=== PATIENT | female | born 1960 | race Hispanic/Latino ===

== ENCOUNTER 2018-02-20 14:08 | Emergency (ER) | payer MEDICAID ==
[2018-02-20] MEDS ORDERED: NACL 0.9% 1000 ML 1,000 ML ONE (15:43)
[2018-02-20] MEDS ORDERED: ASPIRIN PO ONE (15:51)
[2018-02-20] MEDS ORDERED: NACL 0.9% 1000 ML 1,000 ML IV ONE ×2 (15:53→16:07)
--- NOTE | 2018-02-20 16:13 | Emergency Department Report ---
HPI - General Chief Complaint: Fall Time Seen by Provider: 02/20/18 16:00 - HPI HPI: 57-year-old female presents to the emergency department by EMS from home after she appeared to have a syncopal episode on the bathroom. She says that she felt very dizzy and her ears started ringing and she thinks that she passed out. Upon waking up she has pain and deformity to the right ankle. She was placed in a makeshift splint by EMS but says she did not receive anything for discomfort. She has a history of rheumatoid arthritis, chronic back pains and gastroparesis. She denies any headache, neck pain, chest pain, shortness of breath. She denies any illicit drug use or alcohol use. ED Past Medical Hx - Past Medical History Hx Arthritis: Yes (RA) Additional medical history: gastroparesis - Surgical History Additional Surgical History: chronic back pain - Social History Smoking Status: Never Smoker - Medications Home Medications: Home Medications Medication Instructions Recorded Confirmed Last Taken Type Citalopram Hydrobromide 40 mg PO QDAY 02/20/18 02/20/18 Unknown History [Citalopram HBr] Gabapentin [Neurontin] 300 mg PO TID 02/20/18 02/20/18 Unknown History Zolpidem [Ambien] 10 mg PO QHS PRN 02/20/18 02/20/18 Unknown History tiZANidine [Zanaflex] 4 mg PO BID 02/20/18 02/20/18 Unknown History ED Review of Systems ROS: Stated complaint: RIGHT ANKLE INJURY Other details as noted in HPI Comment: All other systems reviewed and negative Constitutional: denies: chills, fever Eyes: denies: eye pain, eye discharge, vision change ENT: denies: ear pain, throat pain Respiratory: denies: cough, shortness of breath, wheezing Cardiovascular: syncope. denies: chest pain, palpitations Gastrointestinal: denies: abdominal pain, nausea, diarrhea Genitourinary: denies: urgency, dysuria, discharge Musculoskeletal: joint swelling, arthralgia Skin: denies: rash, lesions Neurological: denies: headache, numbness Physical Exam - Physical Exam Vital Signs: Vital Signs 02/20/18 15:25 Temperature 98.1 F Pulse Rate 78 Blood Pressure 88/58 Physical Exam: GENERAL: The patient is well-developed well-nourished. HENT: Normocephalic. Atraumatic. Patient has moist mucous membranes. EYES: Extraocular motions are intact. Pupils equal reactive to light bilaterally. NECK: Supple. Trachea is midline. CHEST/LUNGS: Clear to auscultation. There is no respiratory distress noted. HEART/CARDIOVASCULAR: Regular. There is no tachycardia. There is no murmur. ABDOMEN: Abdomen is soft, nontender. Patient has normal bowel sounds. There is no abdominal distention. SKIN: Skin is warm and dry. NEURO: The patient is awake, alert, and oriented. The patient is cooperative. The patient has no focal neurologic deficits. The patient has normal speech. MUSCULOSKELETAL: There is tenderness palpation to the right foot and ankle which appears deformed with the ankle dislocated and/or displaced laterally with moderate to severe eversion. Decreased range of motion of the right foot and ankle secondary to pain and deformity. There is topical dorsalis pedis pulses are 2+/4. Refill less than 2 seconds. ED Course Vital Signs 02/20/18 15:25 Temperature 98.1 F Pulse Rate 78 Blood Pressure 88/58 - Moderate Sedation Indications: fracture/dislocation redu ASA Class: II Mallampati Airway Score: 2 Preparation: hospital monitor applied, pulse oximeter, capnometry used, supplemental O2 applied, suction/airway equipment at bedside, IV secured Midazolam: IV Midazolam Dose: 1 Ketamine: IV Ketamine Dose: 80 Complications: none Patient Tolerated Procedure: well - Orthopedic Fracture Reduction Fracture #1 Consent Obtained: verbal consent Time Out Performed: Yes Side: right Fracture Reduction Location: fibula Analgesia: moderate sedation Technique: direct manipulation Post Reduction X-rays Demonstrate: acceptable reduction Post-Reduction Neuro Exam: intact Post-Reduction Vascular Exam: intact Splint Applied: Yes Patient Tolerated Procedure: well - Orthopedic Joint Reduction Joint #1 Consent Obtained: verbal consent Time Out Performed: Yes Side: right Joint Reduction Location: ankle Analgesia: moderate sedation Shoulder Technique Used (if applicable): traction/counter-traction Post-Reduction Neuro Exam: intact Post-Reduction Vascular Exam: intact Post Reduction X-Ray Obtained: Yes Post Reduction X-Ray Results: reduced Splint Applied: Yes Patient Tolerated Procedure: well ED Medical Decision Making - Lab Data Result diagrams: 02/20/18 16:00 02/20/18 16:00 - EKG Data -: EKG Interpreted by Me EKG shows normal: sinus rhythm, axis, intervals, QRS complexes, ST-T waves Rate: normal - EKG Data When compared to previous EKG there are: previous EKG unavailable Interpretation: normal EKG - Radiology Data Radiology results: report reviewed, image reviewed interpreted by me: X-ray of the right foot and ankle shows a lateral ankle dislocation and a distal fibular shaft fracture that is comminuted angulated and displaced. Post reduction x-ray of the right ankle shows appropriate reduction of the ankle joint but still shows the distal fibular shaft fracture that is comminuted but much better aligned without any significant angulation or displacement. Chest x-ray does not show any acute process. There are no pleural effusions, obvious pneumonia and there is no pneumothorax. PROCEDURE: CT HEAD/BRAIN WO CON TECHNIQUE: Computerized tomography of the head was performed without contrast material. HISTORY: Syncope COMPARISON: No prior studies are available for comparison. FINDINGS: Skull and scalp: Normal. Paranasal sinuses: Normal. Ventricles and subarachnoid spaces: Normal. Cerebrum: No evidence of hemorrhage, acute infarction or mass . Cerebellum and brainstem: No evidence of hemorrhage, acute infarction or mass. Vasculature: Normal. Comments: None. IMPRESSION: Normal Examination Transcribed By: [facility] Dictated By: OLIVIA APARICIO Electronically Authenticated By: OLIVIA APARICIO Signed Date/Time: 02/20/182048 - Medical Decision Making Patient presents after having a syncopal episode with right ankle pain and deformity. X-ray shows a fibular fracture and ankle dislocation. Patient was moved into a room from the hallway where she had a moderate sedation and a reduction procedure. Repeat x-ray shows appropriate reduction and better alignment of the fracture. I spoke with the orthopedist, Dr. Conner, who agreed with the plan of follow-up with splint, crutches and nonweightbearing. The patient was also evaluated for this syncopal episode. CT of the head did not show any bleed, shift, mass or any acute process. EKG did not show any signs of ST elevation NC or dysrhythmia. The rest of her labs were mostly unremarkable except for some renal deficiency. I discussed this with the patient. The patient was given multiple referrals for orthopedist. She was instructed to follow up with primary care physician regarding her renal sufficiency and syncopal episodes. She will return to the ER with any worsening of her symptoms or any acute distress. Patient was given some pain control within the emergency department. She has a history of chronic back pain and takes narcotic pain medication regularly. For this reason I looked her up on the [employer] prescription monitoring system and the patient had filled about 30 [place] within the past 2-4 days. I explained to the patient that for this reason I'm declining filling any narcotic prescriptions at this time but the patient can follow up with her primary care physician and should be following up with an orthopedist in the next few days. - Differential Diagnosis fracture, dislocation, orthostatic hypotension, vasovagal, dysrhythmia Critical Care Time: No Critical care attestation.: If time is entered above; I have spent that time in minutes in the direct care of this critically ill patient, excluding procedure time. ED Disposition Clinical Impression: Dislocation of right ankle joint Qualifiers: Encounter type: initial encounter Qualified Code(s): S93.04XA - Dislocation of right ankle joint, initial encounter Fibula fracture Qualifiers: Encounter type: initial encounter Fibula location: shaft Fracture type: closed Fracture morphology: comminuted Fracture alignment: displaced Laterality: right Qualified Code(s): S82.451A - Displaced comminuted fracture of shaft of right fibula, initial encounter for closed fracture Syncope Qualifiers: Syncope type: unspecified Qualified Code(s): R55 - Syncope and collapse Disposition: DC-01 TO HOME OR SELFCARE Is pt being admited?: No Condition: Stable Instructions: Ankle Fracture (ED), Leg Fracture (ED), Syncope (ED), Ankle Dislocation (ED) Additional Instructions: Please follow up with an orthopedist in the next few days regarding your ankle/ leg fracture and the ankle dislocation. Remain in the splint and nonweightbearing to that right lower extremity until follow-up with the orthopedist. I have given you two different names of orthopedic groups. Please follow-up with your primary care physician, Dr. Lees, regarding the episode of passing out. Return to the emergency Department with any worsening of your symptoms or any acute distress. Referrals: ASHER CONNER MD [Staff Physician] - JEANIE SANCHEZ MD [Referring] - [facility] [Provider Group] - [facility] Forms: Work/School Release Form(ED) Time of Disposition: 21:00
[2018-02-20] MEDS ORDERED: SUBLIMAZE IV ONE (16:17)
[2018-02-20 16:19] LABS: Basophils # (Auto) 0.1 K/mm3 (0.0-0.1); Basophils % (Auto) 0.6 % (0.0-1.8); Eosinophils # (Auto) 0.3 K/mm3 (0.0-0.4); Eosinophils % (Auto) 2.8 % (0.0-4.3); Hemoglobin 13.7 gm/dl (10.1-14.3); Lymphocytes # (Auto) 1.5 K/mm3 (1.2-5.4); Lymphocytes % (Auto) 16.5 % (13.4-35.0); Mean Corpuscular HGB Conc 34 % (30-34); Mean Corpuscular Hemoglobin 32 pg (28-32); Mean Corpuscular Volume 92 fl (79-97); Monocytes # (Auto) 0.6 K/mm3 (0.0-0.8); Monocytes % (Auto) 6.4 % (0.0-7.3); Platelet Count 265 K/mm3 (140-440); Red Blood Count 4.35 M/mm3 (3.65-5.03); Red Cell Distribution Width 13.7 % (13.2-15.2)
[2018-02-20 16:38] LABS: BUN/Creatinine Ratio 15; Blood Urea Nitrogen 19 mg/dL (7-17); Calcium 9.4 mg/dL (8.4-10.2); Hemolysis Index 1
[2018-02-20] MEDS ORDERED: KETAMINE HCL IV ONE (17:00)
[2018-02-20] MEDS ORDERED: ATIVAN IV ONE (17:04)
[2018-02-20] MEDS ORDERED: KETALAR IV ONE (17:04)
--- NOTE | 2018-02-20 17:47 | XRay Report ---
FINAL REPORT EXAM: XR FOOT 2V RT HISTORY: right foot pain TECHNIQUE: 2 views of the right foot PRIORS: Right ankle 02/20/2018 FINDINGS: Plantar calcaneal bone spurring is moderate. Visible tarsals and metatarsals demonstrate no acute fracture. Frontal exam partly limited by external artifact. Angulated comminuted displaced fracture of distal fibular diaphysis. Lateral mortise intact. Medial mortise severely widened with lateral dislocation of the talus relative to the distal tibia. Frontal view demonstrates subtle linear lucency in the medial malleolus which may be a nondisplaced fracture. Differential includes prominent nutrient vessel. IMPRESSION: Ankle fracture dislocation
--- NOTE | 2018-02-20 18:00 | XRay Report ---
FINAL REPORT EXAM: XR ANKLE 2V RT HISTORY: pain, deformity, swelling, injury TECHNIQUE: 2 views of the right ankle PRIORS: Right foot 02/20/2018 FINDINGS: Plantar calcaneal bone spurring is moderate. Dorsal calcaneal degenerative enthesopathy is small. There is an angulated fracture with displacement and comminution in the distal diaphysis of the fibula. The lateral mortise joint is intact. There is mortise joint dislocation with severe medial widening and lateral displacement of the talus relative to the distal tibia. On the frontal view, there is a subtle linear osseous density adjacent to the talar dome which may reflect avulsion fracture from the talus or distal tibia. IMPRESSION: Ankle fracture dislocation
--- NOTE | 2018-02-20 18:01 | XRay Report ---
FINAL REPORT EXAM: XR CHEST 1V AP HISTORY: Syncope TECHNIQUE: Frontal portable examination of the chest PRIORS: None FINDINGS: Limited examination due to prominent soft tissue attenuation. There is no pulmonary consolidation, pleural effusion, or pneumothorax. The regional skeleton is without acute pathology. The cardiac silhouette size is slightly enlarged without evidence of vascular congestion or pulmonary edema. IMPRESSION: No acute the pulmonary disease in the visualized chest Slight cardiomegaly
[2018-02-20] MEDS ORDERED: DUONEB *Not for PRN Use IH ONE (19:25)
--- NOTE | 2018-02-20 20:30 | XRay Report ---
FINAL REPORT EXAM: XR ANKLE 2V RT HISTORY: post reduction TECHNIQUE: Frontal and lateral views of right ankle. PRIORS: Earlier on same date. FINDINGS: Complex, comminuted fracture in distal fibular metaphysis again noted, with mild displacement, but decreased angulation and overall improved position. Tibiotalar joint normally relocated, with widening of medial clear space. Remainder of osseous and soft tissue structures grossly unremarkable. IMPRESSION: 1. Status post reduction right distal fibular fracture and tibiotalar dislocation.
--- NOTE | 2018-02-20 20:53 | Cat Scan Report ---
FINAL REPORT PROCEDURE: CT HEAD/BRAIN WO CON TECHNIQUE: Computerized tomography of the head was performed without contrast material. HISTORY: Syncope COMPARISON: No prior studies are available for comparison. FINDINGS: Skull and scalp: Normal. Paranasal sinuses: Normal. Ventricles and subarachnoid spaces: Normal. Cerebrum: No evidence of hemorrhage, acute infarction or mass . Cerebellum and brainstem: No evidence of hemorrhage, acute infarction or mass. Vasculature: Normal. Comments: None. IMPRESSION: Normal Examination
[2018-02-20] MEDS ORDERED: PERCOCET 5/325 PO ONE (21:56)
[2018-02-20 22:30] VITALS: BP 114/59
== END 2018-02-20 22:27 | disposition home or self-care (01) ==
LOC: ED 14:08
DX: S82.61XA Displaced fracture of lateral malleolus of right fibula, initial encounter for closed fracture (principal); R55 Syncope and collapse; M19.90 Unspecified osteoarthritis, unspecified site; G89.29 Other chronic pain; W18.30XA Fall on same level, unspecified, initial encounter; Y93.89 Activity, other specified; Y99.8 Other external cause status; Y92.091 Bathroom in other non-institutional residence as the place of occurrence of the external cause
CPT/HCPCS: 27788; 36415; 70450; 71045; 73600; 73620; 80048; 84443; 84484; 85025; 93005; 93010; 96361; 96374; 96375; 99285; J2060; J3010; J7030

== ENCOUNTER 2018-03-05 10:29 | Day surgery (SDC) | payer MEDICAID ==
[2018-03-05] MEDS ORDERED: CLEOCIN 900 MG/50 mL 900 MG/50 ML BAG IV NR (11:15)
[2018-03-05] MEDS ORDERED: LACTATED RINGERS 1,000 ML IV SCH (12:00)
[2018-03-05] MEDS ORDERED: REGLAN ONE (12:24)
[2018-03-05] MEDS ORDERED: VERSED ONE ×2 (12:24→16:29)
[2018-03-05] MEDS ORDERED: PEPCID IV ONE (12:24)
[2018-03-05] MEDS ORDERED: SUBLIMAZE ONE ×2 (12:25→13:14)
[2018-03-05] MEDS ORDERED: DECADRON ONE (12:31)
[2018-03-05] MEDS ORDERED: DIPRIVAN 10 MG/ML IV ONE (13:14)
[2018-03-05] MEDS ORDERED: XYLOCAINE MPF 2% ONE (13:14)
[2018-03-05] MEDS ORDERED: ZOFRAN ONE (15:58)
[2018-03-05] MEDS ORDERED: LACTATED RINGERS 1,000 ML ONE (15:58)
--- NOTE | 2018-03-05 16:01 | Short Stay Summary ---
Short Stay Documentation Date of service: 03/05/18 - History H&P: obtained from office - Allergies and Medications Current Medications: Allergies Penicillins Allergy (Verified 02/20/18 15:51) Rash Home Medications Medication Instructions Recorded Confirmed Last Taken Type Citalopram Hydrobromide 40 mg PO QDAY 02/20/18 03/05/18 03/04/18 09:00 History [Citalopram HBr] Gabapentin [Neurontin] 300 mg PO TID 02/20/18 03/05/18 03/04/18 17:00 History Zolpidem [Ambien] 10 mg PO QHS PRN 02/20/18 03/05/18 Unknown History tiZANidine [Zanaflex] 4 mg PO BID 02/20/18 03/05/18 03/04/18 17:00 History Active Medications Lactated Ringer's (Lactated Ringers) 1,000 mls @ 75 mls/hr IV DIRECT JOANNE - Brief post op/procedure progress note Date of procedure: 03/05/18 Pre-op diagnosis: displaced right distal fibula fracture,syndesmotic disruption Post-op diagnosis: other (displaced right distal fibula fracture, syndesmotic disruption, widening of the medial mortise) Procedure: open reduction internal fixation of displaced right distal fibula fracture, open reduction and internal fixation of syndesmotic disruption, open reduction of medial mortise, application of short leg cast Anesthesia: GETA Findings: as above Surgeon: ELSI SOLORZANO Estimated blood loss: minimal Pathology: none Condition: stable - Hospital course Hospital course: no perioperative complications - Disposition Condition at discharge: Good Disposition: DC-01 TO HOME OR SELFCARE Short Stay Discharge Plan Follow up with: JEANIE SONG MD [Primary Care Provider] - 7 Days
[2018-03-05] MEDS ORDERED: DILAUDID ONE (16:02)
[2018-03-05] MEDS: DILAUDID IV PRN ×3 (16:25→16:55)
[2018-03-05] MEDS ORDERED: MARCAINE 0.5% 30 ML INFILTRATI ONE (16:29)
[2018-03-05 17:51] VITALS: BP 134/86
--- NOTE | 2018-03-05 19:41 | Anesthesia Consultation ---
Anesthesia Consult and Med Hx Date of service: 03/05/18 - Airway Anesthetic Teeth Evaluation: Good ROM Head & Neck: Adequate Mental/Hyoid Distance: Adequate Mallampati Class: Class II Intubation Access Assessment: Probably Good - Pulmonary Exam CTA: Yes - Cardiac Exam Cardiac Exam: RRR - Pre-Operative Health Status ASA Pre-Surgery Classification: ASA3 Proposed Anesthetic Plan: General
--- NOTE | 2018-03-05 19:41 | Anesthesia Day of Surgery ---
Anesthesia Day of Surgery - Day of Surgery Patient Examined: Yes Patient H&P Reviewed: Yes Patient is NPO: Yes
--- NOTE | 2018-03-05 20:05 | Operative Report ---
PREOPERATIVE DIAGNOSES: Persistent right ankle pain, grossly displaced distal fibular fracture, disruption of the syndesmosis, widening of the medial mortise. POSTOPERATIVE DIAGNOSES: Persistent right ankle pain, grossly displaced distal fibular fracture, disruption of the syndesmosis, widening of the medial mortise. OPERATIVE PROCEDURE: Open reduction and internal fixation of a grossly displaced distal fibula fracture, open reduction and internal fixation of syndesmotic disruption, open reduction with disruption of the medial mortise, application of short leg cast. SURGEON: Flakito Plascencia M.D. PNEUMATIC DEICER INSPECTOR: None. ANESTHESIA: General. PREOPERATIVE ANTIBIOTICS: Clindamycin 900 mg IV within 1 hour of skin incision. DVT PROPHYLAXIS: Knee high compression stockings and SCD pumps to the nonoperative left lower extremity. OPERATIVE INSTRUMENTATION: One 10-hole one-third semitubular plate for distal fibula fixation using 1, 2.7 interfrag screw using AO technique. Three proximal and fully threaded cortical, three distal fully threaded cortical screws from the antiglide plate; one 4.5 fully threaded cortical screw for syndesmotic fixation, placed 4 cortices of distal fibula and tibia. OPERATIVE COMPLICATIONS: None. OPERATIVE HISTORY AND PHYSICAL: This is a 57-year-old female with multiple medical problems, who suffered a nonsyncopal fall approximately 2 weeks ago while standing in her bathroom. The patient was brought via ambulance to [facility] Emergency Room where she was evaluated by Emergency Room staff, x-rays were obtained and she was told that she had an ankle fracture. The patient was splinted and she was referred to an outside orthopedic surgeon. The patient was not compliant, did not follow up with that physician and came to my office approximately 2 weeks after the initial injury date. The patient was found to be noncompliant and was walking on her cast despite having perfect understanding that she was intended to be nonweightbearing in fact and she came in without any assistive devices such as crutches, walker or cane whatsoever into the office. Repeat x-rays showed continued displacement of the fracture with gross disruption of the syndesmosis as well as gross disruption of the medial mortise. The patient's x-ray findings and diagnosis were discussed at length. After making sure the patient understood that diagnosis and all questions were answered, we then discussed treatment alternatives including risks, benefits and recommendation was trial with closed reduction given the fracture was so displaced and there continued to be subluxation with widening of the mortise and syndesmosis. Risks, benefits of attempted closed reduction was discussed to make sure the patient understood and all questions were answered, and she wished to proceed with this. Gentle closed reduction was performed, but was unsuccessful. Therefore, we discussed surgical treatment, which would include open reduction and internal fixation of the distal fibula, open reduction and internal fixation of the syndesmotic injury as well as open reduction of the medial mortise, and application of a short leg cast. The risk of which were discussed to include but not exclusive of infection, blood loss, nerve damage, loss of range of motion, persistent pain, failure of hardware, nonunion, malunion, persistent limp, possible need for future surgeries including removal of the syndesmotic screw. Again, the patient understood, all of her questions were answered and she wished to proceed with operative intervention. OPERATIVE PROCEDURE: The patient was seen in preoperative holding room area at which point informed consent was reviewed and the appropriate right lower extremity was identified and then marked. Anesthesia then performed a popliteal block in the right lower extremity. After confirmation of adequate analgesia of the right lower extremity, the patient was then brought back to the operating room and placed supine on a standard operating room table at which point, general anesthesia was administered. An LMA tube was inserted. After confirmation of appropriate general anesthesia and checking appropriate placement of the endotracheal tube, we then made sure that all bony prominences were well padded that there were no wrinkles in the compression stockings on the left lower extremity and SCD pumps were applied to the left lower extremity. The arms were secured in a neutral position of the patient's side with aid of the arm boards. The head was secured in nice neutral position as well. All fluoroscopic images were brought in making sure that we could obtain appropriate AP, mortise, lateral and oblique images. Once this was confirmed, the right lower extremity was then prepped and draped in the usual sterile fashion. After prepping and draping, a timeout was called and the appropriate right lower extremity was identified which again had been marked in the preoperative holding room area. We began our procedure by first marking out our approach to the distal fibular fracture as well as our approach to the medial malleolus using fluoroscopic images. Once these were marked out with a skin marker, an Esmarch was applied. The right lower extremity was elevated above the level of the patient's heart for several minutes and the tourniquet was then inflated. Once inflated, a #10 blade was used to make skin incision over the area of the distal fibula fracture. Once through skin, blunt digital dissection was carried out down to the bone. This was used to visualized, paying careful attention to protect the neurovascular structures. Once the fracture had been visualized, the beginnings of soft callus which had already started to form were removed and the wound was copiously irrigated. Once this was completed, the fracture was anatomically reduced and then held with a reduction forceps. Then, using standard AO technique, a 2.7 interfragmentary screw was inserted by overdrilling the near cortex as opposed to the far. Once the screw was in place we got good anatomic apposition of the fracture site on AP plane, there was severe comminution in the posterior aspect of the fracture plane. This could not be anatomically reduced given the severity of the comminution, which was present. Once the interfragmentary screw was then placed. A one-third semitubular plate template was used to determine length of our plate size and once this was determined, the plate was selected from the back table and then placed. Then, using standard AO technique then inserted 3 proximal and 3 distal fully threaded cortical screws to our fracture site. Once these were in place, the wound was copiously irrigated. We then turned our attention to the medial malleolus, following reduction of the fibula the medial mortise did not reduce. Therefore, an incision was made on the medial side and with #10 blade a blunt dissection was carried out down to the medial malleolus and the mortise was easily visualized. This was copiously irrigated. We looked inside the medial mortise and saw that there were no soft tissue or bony fragments present within the joint space. Once this was confirmed, it was copiously irrigated with 1 liter of normal saline and once irrigated a large periarticular reduction forceps was applied on both the medial malleolus and distal fibula and then using fluoroscopic guidance, an anatomic reduction was performed. Once the syndesmosis and medial mortise were anatomically reduced a 4.5 fully threaded cortical screw was drilled and then inserted across 4 cortices including distal fibula and distal tibia approximately 2 cm proximal to the joint surface. Once the screw was in place, the reduction forceps was removed and we still had a continued anatomic reduction at the syndesmosis as well as the medial mortise and now a negative ____ test was performed. Once this was confirmed both wounds were again copiously irrigated with normal saline. The fascia was closed with 0 Vicryl, 2-0 Vicryl was used for subcutaneous closure and then marci were used for skin. Adaptic, 4 x 4's, sterile cast padding, short leg cast was applied. The short leg cast was then bivalved and then spread and then overwrapped with Farrukh wrap. Final fluoroscopic images were obtained showing anatomic reduction of the fracture site, anatomic reduction of the syndesmosis, syndesmotic reduction, anatomic reduction of the mortise. The hardware was in place without periprosthetic fracture and in good position following cast application. Following this, the patient was then awakened from general anesthesia without complications, taken to recovery room in stable condition, and standard postoperative orders were written. [facility]# [id number] SHITAL/JUAN
--- NOTE | 2018-03-06 07:32 | XRay Report ---
RIGHT ANKLE, 3 views: History: Right ankle fracture. 3 fluoroscopic images of the right ankle region are presented from surgery. Images demonstrate internal fixation of a distal right fibular shaft fracture with metal plate and screws. Alignment appears anatomic. The tibia is intact. There is suggestion of mild medial tilt of the talar dome on the frontal and oblique images. IMPRESSION: Internal fixation of a distal fibular fracture. Medial tilt of the talar dome is suspected. Please correlate with the images.
== END 2018-03-05 10:30 | disposition home or self-care (01) ==
LOC: OR 10:29
PROVIDERS: ATTEND Orthopaedic Surgery
DX: S82.831A Other fracture of upper and lower end of right fibula, initial encounter for closed fracture (principal); S93.491A Sprain of other ligament of right ankle, initial encounter; E78.00 Pure hypercholesterolemia, unspecified; E66.01 Morbid (severe) obesity due to excess calories; Z68.32 Body mass index [BMI] 32.0-32.9, adult; Z79.899 Other long term (current) drug therapy; Z88.0 Allergy status to penicillin; X58.XXXA Exposure to other specified factors, initial encounter; Y93.89 Activity, other specified; Y92.89 Other specified places as the place of occurrence of the external cause; Y99.8 Other external cause status
CPT/HCPCS: 27814; 27829; 64450; 73610; C1713; J1100; J1170; J2250; J2405; J2704; J2765; J3010; J7120